=== PATIENT | female | born 1955 | race African-American/Black ===

== ENCOUNTER 2021-02-28 16:49 | Inpatient (IN) | payer MEDICARE ==
[~2021-02-28] VITALS: Ht 172.7 cm; Wt 98.4 kg
[~2021-02-28 16:49] MED LIST: EMPA10TA MT; GABA-533 PO; HYDR-3927; HYDR-4001 PO; LANTUSUD SUBCUT; LIDO700A30 TOP; LOV40 SUBCUT; METF25CR PO; SEVE800T8 PO; TIZA6CAP7 PO
[2021-02-28 17:00] VITALS: BP 148/78
[2021-02-28] MEDS ORDERED: NALOXONE HCL 0.4 MG/ML 1ML VIAL IV PRN (19:15)
[2021-02-28] MEDS ORDERED: MAGNESIUM/ALUMINUM HYDROXIDE/SIMETHICONE 30ML UDC PO PRN (19:15)
[2021-02-28] MEDS ORDERED: IPRATROPIUM/ALBUTEROL 0.5-3(2.5)MG/3ML NEB HHN PRN (19:15)
[2021-02-28] MEDS ORDERED: DEXTROSE 50% WATER 50ML SYRINGE IV PRN (19:15)
[2021-02-28] MEDS ORDERED: DIPHENHYDRAMINE 50MG/ML VIAL IV PRN (19:57)
[2021-02-28 20:00] VITALS: BP 132/88
[2021-02-28] MEDS ORDERED: NA PHOS,M-B/NA PHOS,DI-BA ENEMA 118ML PR PRN (20:02)
[2021-02-28 20:47] LABS: CLARITY URINE CLEAR (CLEAR); COLOR URINE YELLOW (YELLOW); KETONES URINE NEGATIVE (NEGATIVE); LEUKOCYTE ESTERASE URINE 1+ (NEGATIVE); NITRITE URINE NEGATIVE (NEGATIVE); OCCULT BLOOD URINE 3+ (NEGATIVE); PROTEIN URINE 1+ (NEGATIVE); UROBILINOGEN URINE 0.2 E.U./dL (0.2-1.0)
[2021-02-28] MEDS: BLOOD SUGAR DIAGNOSTIC STRIP TEST SCH (21:00)
[2021-02-28] MEDS: HYDROCODONE/ACETAMINOPHEN 5/325MG TABLET PO PRN (22:26)
[2021-02-28] MEDS: INSULIN LISPRO 100 UNITS/ML SUBCUT SCH (22:48)
[2021-02-28] MEDS: INSULIN GLARGINE UD 100 UNITS/ML SYR SUBCUT SCH (22:49)
[2021-03-01] MEDS: HYDROCODONE/ACETAMINOPHEN 5/325MG TABLET PO PRN ×2 (05:59→12:48)
[2021-03-01] MEDS: BLOOD SUGAR DIAGNOSTIC STRIP TEST SCH ×4 (06:02→21:34)
[2021-03-01] MEDS: INSULIN LISPRO 100 UNITS/ML SUBCUT SCH ×4 (06:02→21:42)
[2021-03-01 06:49] LABS: HEMATOCRIT. 28.9 % (36.0-48.0); HEMOGLOBIN. 9.6 g/dL (12.0-16.0); MEAN CORPUSCULAR HEMOGLOBIN 26.4 pg (28.0-32.0); MEAN CORPUSCULAR VOLUME 79.2 fL (81.0-99.0); MEAN PLATELET VOLUME 7.2 fl (7.4-10.4); PLATELET 219 x1000/uL (130-400); RED BLOOD CELL COUNT 3.65 mill/uL (4.2-5.4); RED CELL DISTRIBUTION WIDTH 14.9 % (11.6-14.6)
[2021-03-01 07:25] LABS: CHLORIDE 102 mEq/L (98-107)
[2021-03-01 07:38] LABS: PHOSPHORUS 5.4 mg/dL (2.5-4.9)
[2021-03-01 07:50] VITALS: BP 164/76
[2021-03-01] MEDS: LIDOCAINE 5% PATCH TOP SCH (09:00)
[2021-03-01] MEDS ORDERED: GABAPENTIN 400MG CAPSULE PO SCH (09:00)
[2021-03-01] MEDS: ENOXAPARIN 40MG/0.4ML SYR SUBCUT SCH (09:24)
[2021-03-01] MEDS: SEVELAMER CARBONATE 800 MG TABLET PO SCH ×3 (09:25→17:21)
[2021-03-01] MEDS: CLONIDINE 0.1MG TABLET PO PRN (09:25)
[2021-03-01] MEDS: INSULIN GLARGINE UD 100 UNITS/ML SYR SUBCUT SCH ×2 (10:32→21:43)
[2021-03-01 12:36] VITALS: BP 149/79
[2021-03-01] MEDS ORDERED: DOCUSATE SODIUM 250MG CAPSULE PO PRN (14:45)
[2021-03-01 15:54] LABS: PLATELET ESTIMATE NORMAL
[2021-03-01 17:19] VITALS: BP 148/76
[2021-03-01] MEDS: AMLODIPINE 2.5MG TABLET PO SCH (17:21)
[2021-03-01 20:00] VITALS: BP 139/74
[2021-03-02] MEDS: HYDROCODONE/ACETAMINOPHEN 5/325MG TABLET PO PRN ×2 (01:22→08:23)
[2021-03-02] MEDS: BLOOD SUGAR DIAGNOSTIC STRIP TEST SCH ×4 (06:26→21:10)
[2021-03-02] MEDS: INSULIN LISPRO 100 UNITS/ML SUBCUT SCH ×4 (06:30→22:36)
[2021-03-02 07:28] LABS: BASOPHILS % 1.2 % (0.0-2.0); EOSINOPHILS % 0.7 % (0.0-5.0); HEMATOCRIT. 27.6 % (36.0-48.0); HEMOGLOBIN. 9.2 g/dL (12.0-16.0); LYMPHOCYTES % 14.1 % (20.0-50.0); MEAN CORPUSCULAR HEMOGLOBIN 26.7 pg (28.0-32.0); MEAN CORPUSCULAR VOLUME 80.2 fL (81.0-99.0); MONOCYTES % 3.2 % (2.0-8.0); NEUTROPHILS % 80.8 % (40.0-76.0); RED BLOOD CELL COUNT 3.44 mill/uL (4.2-5.4); RED CELL DISTRIBUTION WIDTH 14.8 % (11.6-14.6)
[2021-03-02 07:56] VITALS: BP 141/79
[2021-03-02] MEDS: SEVELAMER CARBONATE 800 MG TABLET PO SCH ×3 (08:22→17:27)
[2021-03-02] MEDS: AMLODIPINE 2.5MG TABLET PO SCH (08:22)
[2021-03-02] MEDS: ENOXAPARIN 40MG/0.4ML SYR SUBCUT SCH (08:24)
[2021-03-02] MEDS: LIDOCAINE 5% PATCH TOP SCH (08:28)
[2021-03-02 08:49] LABS: CHLORIDE 101 mEq/L (98-107)
[2021-03-02 09:05] LABS: CREATINE KINASE 378 IU/L (26-192)
[2021-03-02] MEDS: INSULIN GLARGINE UD 100 UNITS/ML SYR SUBCUT SCH ×2 (10:06→22:40)
[2021-03-02 14:35] LABS: PLATELET 205 x1000/uL (130-400)
[2021-03-02] MEDS: ACETAMINOPHEN 325MG TABLET PO PRN (17:33)
[2021-03-02] MEDS ORDERED: SODIUM CHLORIDE 0.9% 1000ML BAG (SEPSIS BOLUS) IV NR (18:30)
[2021-03-02 20:00] VITALS: BP 136/72
[2021-03-02] MEDS ORDERED: BISMUTH SUBSALICYLATE 262 MG/15 ML-120ML BOTTLE PO PRN (20:00)
[2021-03-03] MEDS: ACETAMINOPHEN 325MG TABLET PO PRN ×2 (00:41→09:24)
[2021-03-03] MEDS: BLOOD SUGAR DIAGNOSTIC STRIP TEST SCH ×4 (05:46→21:00)
[2021-03-03] MEDS: INSULIN LISPRO 100 UNITS/ML SUBCUT SCH ×4 (06:21→22:54)
[2021-03-03 07:34] VITALS: BP 163/70
[2021-03-03] MEDS: LIDOCAINE 5% PATCH TOP SCH (09:00)
[2021-03-03] MEDS: SEVELAMER CARBONATE 800 MG TABLET PO SCH ×3 (09:24→17:17)
[2021-03-03] MEDS: AMLODIPINE 2.5MG TABLET PO SCH (09:25)
[2021-03-03] MEDS: ENOXAPARIN 40MG/0.4ML SYR SUBCUT SCH (09:25)
[2021-03-03] MEDS: INSULIN GLARGINE UD 100 UNITS/ML SYR SUBCUT SCH ×2 (09:27→22:55)
[2021-03-03 15:21] LABS: BASOPHILS % 0.7 % (0.0-2.0); EOSINOPHILS % 0.4 % (0.0-5.0); HEMATOCRIT. 30.6 % (36.0-48.0); HEMOGLOBIN. 10.1 g/dL (12.0-16.0); LYMPHOCYTES % 12.9 % (20.0-50.0); MEAN CORPUSCULAR HEMOGLOBIN 26.9 pg (28.0-32.0); MEAN CORPUSCULAR VOLUME 81.8 fL (81.0-99.0); MEAN PLATELET VOLUME 7.4 fl (7.4-10.4); MONOCYTES % 3.4 % (2.0-8.0); NEUTROPHILS % 82.6 % (40.0-76.0); PLATELET 285 x1000/uL (130-400); RED BLOOD CELL COUNT 3.74 mill/uL (4.2-5.4); RED CELL DISTRIBUTION WIDTH 15.2 % (11.6-14.6)
[2021-03-03] MEDS ORDERED: SODIUM POLYSTYRENE SULFONATE 15 G/60 ML BOT PO SCH (16:00)
[2021-03-03 20:00] VITALS: BP 140/73
[2021-03-04] MEDS: BLOOD SUGAR DIAGNOSTIC STRIP TEST SCH ×4 (06:35→20:26)
[2021-03-04] MEDS: INSULIN LISPRO 100 UNITS/ML SUBCUT SCH ×4 (06:46→21:41)
[2021-03-04 07:32] VITALS: BP 156/77
[2021-03-04 08:13] LABS: PHOSPHORUS 5.8 mg/dL (2.5-4.9)
[2021-03-04] MEDS: LIDOCAINE 5% PATCH TOP SCH (09:00)
[2021-03-04] MEDS: INSULIN GLARGINE UD 100 UNITS/ML SYR SUBCUT SCH ×2 (10:31→21:41)
[2021-03-04] MEDS: SEVELAMER CARBONATE 800 MG TABLET PO SCH ×3 (10:32→17:13)
[2021-03-04] MEDS: AMLODIPINE 5MG TABLET PO SCH (10:32)
[2021-03-04 11:47] LABS: BASOPHILS % 0.8 % (0.0-2.0); EOSINOPHILS % 0.6 % (0.0-5.0); HEMATOCRIT. 29.5 % (36.0-48.0); HEMOGLOBIN. 9.5 g/dL (12.0-16.0); LYMPHOCYTES % 14.9 % (20.0-50.0); MEAN CORPUSCULAR HEMOGLOBIN 26.3 pg (28.0-32.0); MEAN CORPUSCULAR VOLUME 81.8 fL (81.0-99.0); MEAN PLATELET VOLUME 7.5 fl (7.4-10.4); MONOCYTES % 5.5 % (2.0-8.0); NEUTROPHILS % 78.2 % (40.0-76.0); PLATELET 287 x1000/uL (130-400)
[2021-03-04] MEDS: LOPERAMIDE 2MG/15ML UDC PO PRN (17:13)
[2021-03-04 20:00] VITALS: BP 150/69
[2021-03-05] MEDS: BLOOD SUGAR DIAGNOSTIC STRIP TEST SCH ×4 (05:52→21:12)
[2021-03-05] MEDS: INSULIN LISPRO 100 UNITS/ML SUBCUT SCH ×4 (06:35→21:31)
[2021-03-05] MEDS: ACETAMINOPHEN 325MG TABLET PO PRN ×3 (06:36→20:38)
[2021-03-05 07:49] VITALS: BP 155/56
[2021-03-05] MEDS: LIDOCAINE 5% PATCH TOP SCH (09:00)
[2021-03-05] MEDS: AMLODIPINE 5MG TABLET PO SCH (09:33)
[2021-03-05] MEDS: LOPERAMIDE 2MG/15ML UDC PO PRN (09:33)
[2021-03-05] MEDS: SEVELAMER CARBONATE 800 MG TABLET PO SCH ×3 (09:33→17:40)
[2021-03-05] MEDS: INSULIN GLARGINE UD 100 UNITS/ML SYR SUBCUT SCH ×2 (09:35→21:32)
[2021-03-05 17:39] LABS: BASOPHILS % 1.7 % (0.0-2.0); EOSINOPHILS % 0.8 % (0.0-5.0); HEMATOCRIT. 27.8 % (36.0-48.0); HEMOGLOBIN. 9.3 g/dL (12.0-16.0); MEAN CORPUSCULAR HEMOGLOBIN 26.6 pg (28.0-32.0); MEAN PLATELET VOLUME 7.2 fl (7.4-10.4); MONOCYTES % 6.1 % (2.0-8.0); NEUTROPHILS % 72.4 % (40.0-76.0); PLATELET 333 x1000/uL (130-400); RED BLOOD CELL COUNT 3.48 mill/uL (4.2-5.4); RED CELL DISTRIBUTION WIDTH 15.1 % (11.6-14.6)
[2021-03-05 17:49] LABS: PHOSPHORUS 4.7 mg/dL (2.5-4.9)
[2021-03-05 20:00] VITALS: BP 124/78
[2021-03-06] MEDS: ACETAMINOPHEN 325MG TABLET PO PRN ×2 (02:43→14:51)
[2021-03-06] MEDS: BLOOD SUGAR DIAGNOSTIC STRIP TEST SCH ×4 (06:18→21:16)
[2021-03-06] MEDS: INSULIN LISPRO 100 UNITS/ML SUBCUT SCH ×4 (06:27→21:16)
[2021-03-06 08:16] VITALS: BP 174/81
[2021-03-06 08:33] LABS: CHLORIDE 108 mEq/L (98-107)
[2021-03-06 08:42] LABS: PHOSPHORUS 4.5 mg/dL (2.5-4.9)
[2021-03-06 08:44] LABS: CREATINE KINASE 213 IU/L (26-192)
[2021-03-06 08:48] LABS: BASOPHILS % 1.1 % (0.0-2.0); EOSINOPHILS % 0.6 % (0.0-5.0); HEMATOCRIT. 26.2 % (36.0-48.0); HEMOGLOBIN. 8.5 g/dL (12.0-16.0); LYMPHOCYTES % 21.8 % (20.0-50.0); MEAN CORPUSCULAR HEMOGLOBIN 26.6 pg (28.0-32.0); MEAN PLATELET VOLUME 7.1 fl (7.4-10.4); MONOCYTES % 7.6 % (2.0-8.0); NEUTROPHILS % 68.9 % (40.0-76.0); PLATELET 330 x1000/uL (130-400); RED BLOOD CELL COUNT 3.19 mill/uL (4.2-5.4)
[2021-03-06] MEDS: SEVELAMER CARBONATE 800 MG TABLET PO SCH (09:00)
[2021-03-06] MEDS: LIDOCAINE 5% PATCH TOP SCH (09:00)
[2021-03-06] MEDS: AMLODIPINE 5MG TABLET PO SCH (09:00)
[2021-03-06] MEDS: INSULIN GLARGINE UD 100 UNITS/ML SYR SUBCUT SCH ×2 (10:00→21:15)
[2021-03-06] MEDS ORDERED: MAGNESIUM 2 G PREMIX 50 ML IV NR (14:00)
[2021-03-06 20:00] VITALS: BP 168/84
[2021-03-06] MEDS: HYDROCODONE/ACETAMINOPHEN 5/325MG TABLET PO PRN (20:50)
[2021-03-06] MEDS: CLONIDINE 0.1MG TABLET PO PRN (20:51)
[2021-03-06] MEDS ORDERED: NALOXONE HCL 0.4MG/ML VIAL IV PRN (21:00)
[2021-03-06 22:06] VITALS: BP 147/69
[2021-03-07] MEDS: ACETAMINOPHEN 325MG TABLET PO PRN ×2 (02:04→12:27)
[2021-03-07] MEDS: HYDROCODONE/ACETAMINOPHEN 5/325MG TABLET PO PRN ×2 (06:01→18:08)
[2021-03-07] MEDS: BLOOD SUGAR DIAGNOSTIC STRIP TEST SCH ×4 (06:02→21:32)
[2021-03-07] MEDS: INSULIN LISPRO 100 UNITS/ML SUBCUT SCH ×4 (06:34→21:40)
[2021-03-07 08:22] VITALS: BP 169/97
[2021-03-07] MEDS: AMLODIPINE 5MG TABLET PO SCH (08:56)
[2021-03-07] MEDS: LIDOCAINE 5% PATCH TOP SCH (08:57)
[2021-03-07] MEDS: INSULIN GLARGINE UD 100 UNITS/ML SYR SUBCUT SCH ×2 (11:17→21:41)
[2021-03-07 18:01] VITALS: BP 185/82
[2021-03-07] MEDS: CLONIDINE 0.1MG TABLET PO PRN (18:09)
[2021-03-07 19:05] VITALS: BP 156/65
[2021-03-07 20:00] VITALS: BP 139/68
[2021-03-08] MEDS: HYDROCODONE/ACETAMINOPHEN 5/325MG TABLET PO PRN ×3 (01:15→21:16)
[2021-03-08] MEDS: BLOOD SUGAR DIAGNOSTIC STRIP TEST SCH ×4 (05:55→21:21)
[2021-03-08] MEDS: INSULIN LISPRO 100 UNITS/ML SUBCUT SCH ×4 (06:00→21:19)
[2021-03-08 06:26] LABS: BASOPHILS % 1.3 % (0.0-2.0); EOSINOPHILS % 1.5 % (0.0-5.0); HEMATOCRIT. 25.1 % (36.0-48.0); HEMOGLOBIN. 8.3 g/dL (12.0-16.0); LYMPHOCYTES % 26.2 % (20.0-50.0); MEAN CORPUSCULAR HEMOGLOBIN 26.8 pg (28.0-32.0); MEAN CORPUSCULAR VOLUME 81.2 fL (81.0-99.0); MEAN PLATELET VOLUME 7.3 fl (7.4-10.4); MONOCYTES % 9.6 % (2.0-8.0); NEUTROPHILS % 61.4 % (40.0-76.0); PLATELET 327 x1000/uL (130-400); RED BLOOD CELL COUNT 3.09 mill/uL (4.2-5.4)
[2021-03-08 07:49] VITALS: BP 151/82
[2021-03-08] MEDS: LOPERAMIDE 2MG/15ML UDC PO PRN (08:32)
[2021-03-08] MEDS: LIDOCAINE 5% PATCH TOP SCH (08:33)
[2021-03-08] MEDS: AMLODIPINE 5MG TABLET PO SCH (08:33)
[2021-03-08] MEDS: INSULIN GLARGINE UD 100 UNITS/ML SYR SUBCUT SCH ×2 (10:27→21:20)
[2021-03-08] MEDS: CLONIDINE 0.1MG TABLET PO PRN (11:14)
[2021-03-08] MEDS: METOPROLOL TARTRATE 25MG TABLET PO SCH ×2 (12:33→21:15)
[2021-03-08 20:00] VITALS: BP 140/64
[2021-03-09] MEDS: BLOOD SUGAR DIAGNOSTIC STRIP TEST SCH ×4 (06:43→21:57)
[2021-03-09] MEDS: INSULIN LISPRO 100 UNITS/ML SUBCUT SCH ×4 (06:46→22:01)
[2021-03-09 07:15] LABS: BASOPHILS % 1.1 % (0.0-2.0); HEMATOCRIT. 26.6 % (36.0-48.0); HEMOGLOBIN. 8.8 g/dL (12.0-16.0); LYMPHOCYTES % 34.9 % (20.0-50.0); MEAN CORPUSCULAR HEMOGLOBIN 26.9 pg (28.0-32.0); MEAN CORPUSCULAR VOLUME 81.2 fL (81.0-99.0); MONOCYTES % 9.7 % (2.0-8.0); NEUTROPHILS % 53.3 % (40.0-76.0); PLATELET 324 x1000/uL (130-400); RED BLOOD CELL COUNT 3.27 mill/uL (4.2-5.4)
[2021-03-09 07:43] LABS: PHOSPHORUS 4.8 mg/dL (2.5-4.9)
[2021-03-09 08:23] VITALS: BP 180/87
[2021-03-09] MEDS: AMLODIPINE 5MG TABLET PO SCH (08:41)
[2021-03-09] MEDS: CLONIDINE 0.1MG TABLET PO PRN (08:41)
[2021-03-09] MEDS: HYDROCODONE/ACETAMINOPHEN 5/325MG TABLET PO PRN ×3 (08:42→22:50)
[2021-03-09] MEDS: METOPROLOL TARTRATE 25MG TABLET PO SCH ×2 (08:42→21:57)
[2021-03-09] MEDS: LIDOCAINE 5% PATCH TOP SCH (08:44)
[2021-03-09] MEDS: INSULIN GLARGINE UD 100 UNITS/ML SYR SUBCUT SCH ×2 (09:07→22:04)
[2021-03-09 20:00] VITALS: BP 141/69
[2021-03-10] MEDS: BLOOD SUGAR DIAGNOSTIC STRIP TEST SCH ×4 (06:41→21:50)
[2021-03-10] MEDS: ACETAMINOPHEN 325MG TABLET PO PRN (06:42)
[2021-03-10] MEDS: INSULIN LISPRO 100 UNITS/ML SUBCUT SCH ×4 (06:47→21:59)
[2021-03-10 07:54] VITALS: BP 127/76
[2021-03-10] MEDS: AMLODIPINE 5MG TABLET PO SCH (08:44)
[2021-03-10] MEDS: METOPROLOL TARTRATE 25MG TABLET PO SCH ×2 (08:44→21:50)
[2021-03-10] MEDS: LIDOCAINE 5% PATCH TOP SCH (08:47)
[2021-03-10] MEDS: INSULIN GLARGINE UD 100 UNITS/ML SYR SUBCUT SCH ×2 (10:28→22:00)
[2021-03-10] MEDS: HYDROCODONE/ACETAMINOPHEN 5/325MG TABLET PO PRN ×2 (11:41→21:51)
[2021-03-10 11:45] VITALS: BP 169/68
[2021-03-10] MEDS: CLONIDINE 0.1MG TABLET PO PRN (11:48)
[2021-03-10 20:00] VITALS: BP 140/70
[2021-03-11 04:07] LABS: OVA & PARASITE EXAM Final report (.)
[2021-03-11] MEDS: BLOOD SUGAR DIAGNOSTIC STRIP TEST SCH ×4 (06:09→21:20)
[2021-03-11] MEDS: INSULIN LISPRO 100 UNITS/ML SUBCUT SCH ×4 (06:14→21:20)
[2021-03-11] MEDS: ACETAMINOPHEN 325MG TABLET PO PRN (06:19)
[2021-03-11 07:22] LABS: BASOPHILS % 1.4 % (0.0-2.0); EOSINOPHILS % 1.3 % (0.0-5.0); HEMOGLOBIN. 8.9 g/dL (12.0-16.0); LYMPHOCYTES % 37.3 % (20.0-50.0); MEAN CORPUSCULAR HEMOGLOBIN 26.5 pg (28.0-32.0); MEAN CORPUSCULAR VOLUME 83.2 fL (81.0-99.0); MEAN PLATELET VOLUME 6.9 fl (7.4-10.4); MONOCYTES % 10.1 % (2.0-8.0); NEUTROPHILS % 49.9 % (40.0-76.0); PLATELET 315 x1000/uL (130-400); RED BLOOD CELL COUNT 3.36 mill/uL (4.2-5.4); RED CELL DISTRIBUTION WIDTH 15.5 % (11.6-14.6)
[2021-03-11 07:33] VITALS: BP 147/65
[2021-03-11 07:37] LABS: PHOSPHORUS 5.7 mg/dL (2.5-4.9)
[2021-03-11] MEDS: LIDOCAINE 5% PATCH TOP SCH (09:00)
[2021-03-11] MEDS ORDERED: POTASSIUM CHLORIDE 20MEQ TABLET SR PO NR ×2 (09:07→11:45)
[2021-03-11] MEDS: AMLODIPINE 5MG TABLET PO SCH (09:32)
[2021-03-11] MEDS: METOPROLOL TARTRATE 25MG TABLET PO SCH (09:33)
[2021-03-11] MEDS: INSULIN GLARGINE UD 100 UNITS/ML SYR SUBCUT SCH ×2 (09:42→21:21)
[2021-03-11] MEDS: MAGNESIUM OXIDE 400MG TABLET PO SCH (10:31)
[2021-03-11] MEDS: CLONIDINE 0.1MG TABLET PO PRN (10:37)
[2021-03-11] MEDS: HYDROCODONE/ACETAMINOPHEN 5/325MG TABLET PO PRN ×2 (10:39→19:50)
[2021-03-11 20:00] VITALS: BP 151/74
[2021-03-11] MEDS: HYDRALAZINE HCL 25MG TABLET PO SCH (20:04)
[2021-03-11] MEDS: METOPROLOL TARTRATE 50MG TABLET PO SCH (20:04)
[2021-03-12] MEDS: BLOOD SUGAR DIAGNOSTIC STRIP TEST SCH ×4 (05:35→20:56)
[2021-03-12] MEDS: HYDROCODONE/ACETAMINOPHEN 5/325MG TABLET PO PRN ×3 (05:37→22:27)
[2021-03-12] MEDS: INSULIN LISPRO 100 UNITS/ML SUBCUT SCH ×4 (06:20→22:33)
[2021-03-12 07:52] VITALS: BP 166/82
[2021-03-12] MEDS: MAGNESIUM OXIDE 400MG TABLET PO SCH (08:40)
[2021-03-12] MEDS: METOPROLOL TARTRATE 50MG TABLET PO SCH ×2 (08:41→20:56)
[2021-03-12] MEDS: AMLODIPINE 5MG TABLET PO SCH (08:41)
[2021-03-12] MEDS: HYDRALAZINE HCL 25MG TABLET PO SCH (08:41)
[2021-03-12] MEDS: LIDOCAINE 5% PATCH TOP SCH (08:42)
[2021-03-12] MEDS: INSULIN GLARGINE UD 100 UNITS/ML SYR SUBCUT SCH ×2 (12:07→22:33)
[2021-03-12 20:00] VITALS: BP 152/82
[2021-03-12] MEDS: HYDRALAZINE HCL 50MG TABLET PO SCH (20:55)
[2021-03-13] MEDS: BLOOD SUGAR DIAGNOSTIC STRIP TEST SCH ×3 (05:26→17:00)
[2021-03-13] MEDS: CLONIDINE 0.1MG TABLET PO PRN (06:42)
[2021-03-13] MEDS: HYDROCODONE/ACETAMINOPHEN 5/325MG TABLET PO PRN ×2 (06:43→16:54)
[2021-03-13] MEDS: INSULIN LISPRO 100 UNITS/ML SUBCUT SCH ×3 (06:45→17:00)
[2021-03-13 07:42] LABS: BASOPHILS % 1.4 % (0.0-2.0); EOSINOPHILS % 1.2 % (0.0-5.0); HEMATOCRIT. 27.7 % (36.0-48.0); HEMOGLOBIN. 9.3 g/dL (12.0-16.0); LYMPHOCYTES % 39.2 % (20.0-50.0); MEAN CORPUSCULAR HEMOGLOBIN 27.1 pg (28.0-32.0); MEAN CORPUSCULAR VOLUME 80.6 fL (81.0-99.0); MEAN PLATELET VOLUME 7.5 fl (7.4-10.4); MONOCYTES % 11.7 % (2.0-8.0); NEUTROPHILS % 46.5 % (40.0-76.0); PLATELET 277 x1000/uL (130-400); RED BLOOD CELL COUNT 3.44 mill/uL (4.2-5.4); RED CELL DISTRIBUTION WIDTH 15.7 % (11.6-14.6)
[2021-03-13 07:59] LABS: CHLORIDE 103 mEq/L (98-107)
[2021-03-13 08:08] VITALS: BP 163/78
[2021-03-13 08:08] LABS: PHOSPHORUS 5.8 mg/dL (2.5-4.9)
[2021-03-13 08:12] LABS: CREATINE KINASE 78 IU/L (26-192)
[2021-03-13 08:24] LABS: FOLIC ACID (FOLATE) SERUM 6.5 ng/mL (>5.38)
[2021-03-13 08:39] VITALS: BP 153/78
[2021-03-13] MEDS ORDERED: CYANOCOBALAMIN 1000MCG/ML VIAL IM SCH (09:00)
[2021-03-13] MEDS: ENOXAPARIN 40MG/0.4ML SYR SUBCUT SCH (09:16)
[2021-03-13] MEDS: MAGNESIUM OXIDE 400MG TABLET PO SCH (09:17)
[2021-03-13] MEDS: HYDRALAZINE HCL 50MG TABLET PO SCH (09:17)
[2021-03-13] MEDS: METOPROLOL TARTRATE 50MG TABLET PO SCH (09:17)
[2021-03-13] MEDS: AMLODIPINE 5MG TABLET PO SCH (09:17)
[2021-03-13] MEDS: LIDOCAINE 5% PATCH TOP SCH (09:18)
[2021-03-13] MEDS: INSULIN GLARGINE UD 100 UNITS/ML SYR SUBCUT SCH (11:13)
[2021-03-13 16:54] VITALS: BP 133/78
[2021-03-19 15:09] LABS: 25-HYDROXY VITAMIN D3 1.8 ng/mL (.)
== END 2021-03-13 19:45 | DRG 91 ==
LOC: UNDOADMIN 16:49
PROVIDERS: ADMIT Psychiatry & Neurology Neurology; ATTEND Family Medicine
DX: G92.8 Other toxic encephalopathy (principal); E11.10 Type 2 diabetes mellitus with ketoacidosis without coma; K72.00 Acute and subacute hepatic failure without coma; N17.9 Acute kidney failure, unspecified; M62.82 Rhabdomyolysis; E87.1 Hypo-osmolality and hyponatremia; R53.81 Other malaise; E66.01 Morbid (severe) obesity due to excess calories; D64.9 Anemia, unspecified; E86.0 Dehydration; I10 Essential (primary) hypertension; F39 Unspecified mood [affective] disorder; G89.29 Other chronic pain; K86.89 Other specified diseases of pancreas; R26.9 Unspecified abnormalities of gait and mobility; E83.39 Other disorders of phosphorus metabolism; Z20.822 Contact with and (suspected) exposure to COVID-19; Z87.891 Personal history of nicotine dependence; Z68.33 Body mass index [BMI] 33.0-33.9, adult; G83.11 Monoplegia of lower limb affecting right dominant side; M71.9 Bursopathy, unspecified; S76.211A Strain of adductor muscle, fascia and tendon of right thigh, initial encounter; R74.01 Elevation of levels of liver transaminase levels
CPT/HCPCS: 36415; 80048; 80053; 80076; 81003; 82248; 82306; 82550; 82607; 82705; 82746; 82962; 83036; 83735; 84100; 84443; 85025; 87015; 87045; 87177; 87209; 87426; 87427; 87449; 89055; 92523; 92610; 93970; 97110; 97112; 97116; 97163; 97166; 97530; 97535; A4565; A6261; J1650; J1815; J3475; A5200